=== PATIENT | male | born 1960 | race Caucasian/White ===

== ENCOUNTER 2018-08-16 05:30 | Day surgery (SDC) | payer BC, OTHER ==
[~2018-08-16] VITALS: Ht 180.3 cm; Wt 176.2 kg
--- NOTE | ~2018-08-16 | PATH ---
[facility] [address] [place] [address] PATHOLOGY RPT PROCEDURE Name: MIGEL HERNANDEZ Anuja Room #: DEP [facility]..#: [id number] Admission: 08/16/18 Date of : 64 Discharge: 08/16/18 Report #: [id number] Path Case #: [id number] [facility] Accession Number: [id number] . 01 Material submitted: . MUCOUS CYST RIGHT INDEX FINGER . 01 Clinical history: . Mass right index finger, mucous cyst . 02 Diagnosis: Skin with underlying soft tissue "mucus cyst right index finger": - Dermal myxoid lesion consistent with a mucus cyst. - Suggest clinical correlation. - The lesion extends to the margins. . (SHA:at;08/17/2018) QTA/08/17/2018 . 02 Electronically signed: . Víctor Crow MD, Pathologist NPI- [id number] . 01 Gross description: . The specimen is received in formalin, labeled "Migel Hernandez, mucous cyst right index finger", is an irregular fragment of manriquez-white soft tissue measuring 0.2 cm in greatest dimension. The content of the container is filtered into a biopsy bag and entirely submitted in A1. (SWS; 08/16/2018) SHS/SHS . 02 Pathologist provided ICD-10: R22.31 . 02 CPT . 686808 Specimen Comment: A courtesy copy of this report has been sent to Specimen Comment: [phone], , . Specimen Comment: Report sent to ,DR GUERRERO / DR CARCAMO Specimen Comment: A duplicate report has been generated due to demographic updates. Performed at: 01 [facility] [address] [id number] MD Cholo Holloway MD Phone: [phone] Performed at: 02 [facility] [address] [place] [address] PATHOLOGY RPT PROCEDURE Name: MIGEL HERNANDEZ Room #: DEP [facility].#: [id number] Admission: 08/16/18 Date of : 64 Discharge: 08/16/18 Report #: [id number] Path Case #: [id number] [address] [place] [address] [id number] MD Anabell Strange MD Phone: [phone]
--- NOTE | ~2018-08-16 | O ---
[facility] [address] [address] OPERATIVE REPORT Name: MIGEL HERNANDEZ Room #: DEP [facility]#: [id number] Admission: 08/16/18 Attend Phys: Anitha Matos, Discharge: 08/16/18 Date of : 64 Report #: [id number] THIS REPORT FOR: //name// CC: Wilberto Matos DATE OF SERVICE: 08/16/2018 PREOPERATIVE DIAGNOSIS: Right index finger dorsal finger mass, mucous cyst. POSTOPERATIVE DIAGNOSIS: Right index finger dorsal finger mass, mucous cyst. PROCEDURE PERFORMED: Right index finger dorsal mass excision with joint debridement. SURGEON: Anitha Matos M.D. ANESTHESIA: Local only. ESTIMATED BLOOD LOSS: Minimal. TOURNIQUET TIME: Finger tourniquet was used for 14 minutes. COMPLICATIONS: None. CONDITION: Stable. DISPOSITION: Recovery room. SPECIMEN: Sent to pathology. The entire procedure was done with the aid of a 3.5 times loupe magnification. INDICATIONS: The patient is a 58-year-old male with the above-mentioned diagnosis. He elects for operative treatment. The risks, benefits, alternatives and complications were discussed, included but were not limited to infection, damage to vessels or nerves, recurrence or nail deformity. Informed consent was obtained and the correct extremity was identified and labeled by myself after verbal confirmation of the patient as well as visual confirmation and signed informed consent. DESCRIPTION OF PROCEDURE: The patient was brought to the operating room and placed on the operating table in dorsal lithotomy position. His right extremity was sterilely prepped and draped in usual fashion. A final time-out was taken to verify the correct patient, operative procedure and operative site, all [address] [address] OPERATIVE REPORT Name: MARYMIGEL Anuja Room #: DEP [facility]..#: [id number] Admission: 08/16/18 Attend Phys: Anitha Matos, Discharge: 08/16/18 Date of : 64 Report #: [id number] concurred. A total of approximately 9 mL of mixture of 0.25% Marcaine and 1% lidocaine was injected both volarly and dorsally, with some supplemental distally. After adequate anesthesia was obtained, a T-type incision was made over the ulnar side of the index finger DIP joint. Full-thickness flaps were created. The joint was entered and a rongeur was used to debride any significant osteophytes. Next, a longitudinal incision was made at the base of the nail and a small 3-mm ganglion cyst was excised. The base was cauterized. Careful attention was placed to avoid any damage to the nail tissue. The wounds were all thoroughly irrigated. The skin was closed with 5-0 nylon suture. The tourniquet was removed and the wound was dressed with Adaptic and sterile gauze. He was placed in a bulky dressing and a volar finger splint. All fingers were pink with brisk capillary refill at the conclusion of the case after deflation of tourniquet. All sponge and needle counts were correct and application of the dressing, all sponge and needle counts were correct. The patient was transferred to postoperative recovery room in stable condition. <ELECTRONICALLY SIGNED> By: Anitha Matos MD 08/23/18 1646 [id number] [id number] Anitha Matos MD /nt
[~2018-08-16 05:30] MED LIST: COREG25 MG PO; DIGOXIN250 MCG PO; ELIQUIS5 MG PO; FARXIGA10 MG PO; GLIMEPIRIDE4 MG PO; GLUCOPHAGE1000 MG PO; LOSARTAN-HCTZ1 EAC1 PO; NEURONTIN600 MG PO; NORVASC5 MG PO; PROTONIX40 M1 PO; WELLBUTRIN XL300 MG PO; ZOCOR20 MG PO; ZOLOFT100 MG PO
[2018-08-16 07:30] VITALS: BP 141/93
[2018-08-16 09:42] VITALS: BP 141/93
== END 2018-08-16 09:15 | disposition home or self-care (01) ==
LOC: OR 05:30 → TBA 05:30 → OR 09:15
DX: D21.11 Benign neoplasm of connective and other soft tissue of right upper limb, including shoulder (principal); I10 Essential (primary) hypertension; E11.9 Type 2 diabetes mellitus without complications; E78.00 Pure hypercholesterolemia, unspecified; I48.91 Unspecified atrial fibrillation; K21.9 Gastro-esophageal reflux disease without esophagitis; F41.9 Anxiety disorder, unspecified; F32.9 Major depressive disorder, single episode, unspecified; G47.33 Obstructive sleep apnea (adult) (pediatric); Z79.01 Long term (current) use of anticoagulants; Z79.899 Other long term (current) drug therapy; Z88.0 Allergy status to penicillin; Z98.890 Other specified postprocedural states
CPT/HCPCS: 50010; 50101; 50386; 56526; 57006; 57091